=== PATIENT | male | born 1955 | race Caucasian/White ===

== ENCOUNTER 2017-12-11 08:03 | Inpatient (IN) ==
[2017-12-11] MEDS ORDERED: SALINE FLUSH 10ml SYRINGE IVF PRN (08:05)
--- NOTE | 2017-12-11 08:06 | Emergency Department Report ---
General Adult HPI - General Stated complaint: cp Time Seen by Provider: 12/11/17 08:04 Source: patient Mode of arrival: ambulatory Limitations: no limitations - History of Present Illness HPI narrative: 62-year-old male presents to the emergency department with a chief complaint of chest tightness. Patient noted onset of symptoms approximately 1 hour prior to arrival to the ED while on his way to work. The tightness was moderate in nature. No radiation. Symptoms resolved without intervention after "a few minutes." He has no other complaints or associated symptoms. He was on his way to work when the symptoms began. Patient did have a history of similar symptoms approximately 1 month ago and never followed up as instructed after his initial visit to the emergency department. - Related Data Home Medications Medication Instructions Recorded Confirmed Niacin 500 mg PO BID #0 08/29/12 12/11/17 Calcium 600 w/Vitamin D3 (calcium 1 cap PO DAILY 03/30/17 12/11/17 carbonate-vitamin D3 600 mg (1,500 mg)-400 unit) capsule multivitamin-ferrous 1 tab PO QAM 03/30/17 12/11/17 fumarate-folic acid 18 mg-400 mcg tablet Aspirin [ASA] 325 mg PO DAILY 12/11/17 12/11/17 Previous Rx's Medication Instructions Recorded Tenormin (atenolol) 100 mg tablet 100 mg PO DAILY #90 tab 03/21/17 chlorthalidone 25 mg tablet 25 mg PO DAILY #90 tab 03/21/17 Catapres (clonidine HCl) 0.1 mg 0.1 mg PO BID #180 tab 11/07/17 tablet Glucophage (metformin) 1,000 mg 1,000 mg PO BID #180 tab 11/27/17 tablet dapagliflozin 10 mg tablet 10 mg PO QAM #90 tab 11/27/17 Cozaar (losartan) 50 mg tablet 50 mg PO BID #60 tab 12/11/17 Allergies Allergy/AdvReac Type Severity Reaction Status Date / Time Penicillins Allergy Verified 12/11/17 12:35 Review of Systems Constitutional: Denies: fever, chills Eyes: Denies: eye pain, vision change ENT: Denies: ear pain, throat pain Cardiovascular: Reports: chest pain. Denies: palpitations Respiratory: Denies: cough, dyspnea, wheezes Gastrointestinal: Denies: abdominal pain, nausea, vomiting, diarrhea Genitourinary: Denies: urgency, dysuria Musculoskeletal: Denies: back pain, arthralgia Integumentary: Denies: erythema, rash Neurological: Denies: headache, numbness Psychiatric: Denies: anxiety, depression Endocrine: Denies: fatigue, heat or cold intolerance Hematological/Lymphatic: Denies: easy bruising, lymphadenopathy Allergic/Immunologic: Denies: facial swelling, urticaria PFSH Patient Stated Medical History Hypertension Yes Diabetes Mellitus Type 2 Yes Cellulitis Yes: foot Clinic Medical History (Last Reviewed 03/30/17 @ 11:39 by ALVINO Brito) Obesity (Chronic Medical) Diabetes (Chronic Medical) Hgb A1C 6.6 Hypercholesteremia (Chronic Medical) HTN (hypertension) (Chronic Medical) Surgical History: Colonoscopy Family History: Family History (Last Reviewed 03/30/17 @ 11:39 by ALVINO Brito) Mother Diabetes Non-Hodgkin lymphoma Father Prostate cancer HTN (hypertension) - Social History Smoking status: Never smoker Substance use type: does not use Alcohol intake frequency: does not drink Physical Exam - Limitations Limitations: no limitations - General General appearance: alert, in no apparent distress - Normal Exams: Head:: Normocephalic without trauma Eyes:: Pupils are PERRLA w/ EOMI, No scleral icterus, irritation, or foreign bodies noted ENMT:: No facial trauma, nasal exudates, pharyngeal erythema, or exudates are noted Dental: No fractured, loose, or missing teeth noted Neck:: Full range of motion, without adenopathy, JVD, bruits or thyromegaly Chest/Respirations:: Clear all el, with good airflow, and symmetry bilaterally Cardiovascular:: Regular rate and rhythm, without murmur or gallop, Pulses 2+ all extremities, capillary refill, <2 seconds all extremities Abdomen:: Bowel sounds positive (Mild RUQ Tenderness to palpation without rebound or guarding. NO CVAT. ), non-distended, no hepatosplenomegaly, masses or bruits noted Lymphatic:: No lymphadenopathy, or lymphedema noted Musculoskeletal:: No tenderness, or deformity noted, good range of motion, all extremities Integumentary:: No rashes, hives, or bruising noted, hair and nails, without abnormality Neurological:: Patient is alert, and oriented, cranial nerves, motor/sensory/ cerebellar, exams w/o gross deficits, to observation Psychiatric:: Patient exhibits, appropriate attention, emotion and affect Course Vital Signs Temperature 97.9 F 12/11/17 08:05 Pulse Rate 72 12/11/17 08:05 Respiratory Rate 24 12/11/17 08:05 Blood Pressure 145/73 H 12/11/17 08:05 Pulse Oximetry 100 12/11/17 08:05 Temperature 99.2 F 12/11/17 12:42 Pulse Rate 73 12/11/17 12:42 Respiratory Rate 16 12/11/17 12:42 Blood Pressure 154/94 H 12/11/17 12:42 Pulse Oximetry 95 12/11/17 12:42 Medical Decision Making - MDM Narrative Medical decision making narrative: Labs / imaging were discussed in detail with the patient and questions are answered. Patient is found to have acute cholecystitis on ultrasound of his gallbladder. Patient is started on Cipro/Flagyl intravenously in the emergency department. He is discussed with the Dr. García of general surgery and was admitted to his service for further evaluation and treatment. He is made NPO in the ED. He declined offered analgesic pain medication in the ED. No further orders from accepting physician who is in agreement with the current plan of management. - Differential Diagnosis ACS, Chest wall pain, acute cholecystitis, pancreatitis - Lab Data Result diagrams: 12/11/17 08:18 12/11/17 08:18 Lab Results 12/11/17 12/11/17 12/11/17 Range/Units 08:18 08:18 08:18 WBC 17.6 H (4.5-11.0) T/MM3 RBC 4.07 L (4.50-5.90) M/MM3 Hgb 11.6 L (13.5-17.5) GM/DL Hct 36.8 L (41-53) % MCV 90.4 (80-100) UM3 MCH 28.5 (26-34) UUG MCHC 31.5 (31-37) GM/DL RDW Std Deviation 46.5 (36.9-50.2) FL Plt Count 473 H D (130-400) T/MM3 MPV 8.7 L (9.4-12.4) UM3 Immature Gran % (Auto) Not performed Neut % (Auto) Not performed Lymph % (Auto) Not performed [place] % (Auto) Not performed Eos % (Auto) Not performed Baso % (Auto) Not performed Neut # (Auto) Not performed Lymph # (Auto) Not performed [place] # (Auto) Not performed Eos # (Auto) Not performed Baso # (Auto) Not performed Abs Immat Gran (auto) Not performed Neutrophils % (Manual) 82.0 H (33-66) % Band Neutrophils % 1.0 (0-6) % Lymphocytes % (Manual) 13.0 L (23-45) % Monocytes % (Manual) 1.0 (0-9.0) % Eosinophils % (Manual) 2.0 (0-4) % Basophils % (Manual) 1.0 (0-2) % Neutrophils # (Manual) 14.4 H (1.8-7.7) T/MM3 Band Neutrophils # 0.2 T/MM3 Lymphocytes # (Manual) 2.3 (1-4.8) T/MM3 Monocytes # (Manual) 0.2 (0-0.8) T/MM3 Eosinophils # (Manual) 0.4 (0-0.5) T/MM3 Basophils # (Manual) 0.2 (0-0.2) T/MM3 RBC Morph Comment Normal Turbidity < 20 (0-20) Sodium 143 (134-144) MEQ/L Potassium 3.7 (3.6-5) MEQ/L Chloride 103 (98-107) MEQ/L Carbon Dioxide 24 (22-30) MEQ/L Anion Gap 16 H (5-15) MEQ/L BUN 13.0 (9-20) MG/DL Creatinine 0.6 L (0.8-1.5) mg/dL GFR Calculation 137 BUN/Creatinine Ratio 22 (6-26) RATIO Glucose 218 H (75-110) MG/DL Calculated Osmolality 282 H (261-280) MOSM/KG Calcium 9.6 (8.4-10.2) MG/DL Total Bilirubin 0.90 (0.20-1.30) MG/DL Icterus Index < 2 (0-7) AST 49 (17-59) U/L ALT 48 (21-72) U/L Alkaline Phosphatase 136 H (38-126) U/L Troponin I < 0.012 (0-0.12) ng/ml Total Protein 7.5 (6.3-8.2) G/DL Albumin 3.9 (3.5-5.0) g/dL Globulin 3.6 (2.4-3.6) G/DL Albumin/Globulin Ratio 1.1 (1.1-2.2) RATIO Lipase 121 (23-300) U/L Specimen Hemolysis < 15 (0-25) - Radiology Data CXR - No acute processes. RUQ US - Impression: Cholelithiasis with gallbladder wall thickening potentially representing acute cholecystitis in the appropriate clinical setting. No biliary ductal dilatation. - EKG Data EKG #1 EKG results narrative: Sinus rhythm. 74 bpm. No STEMI. Disposition Clinical Impression: acute cholecystitis Disposition: 02 To [facility] Condition: Stable Time of Disposition: 10:55 (Admit. Dr. García. ) - Seen By: physician
--- NOTE | 2017-12-11 08:41 | XRay Report ---
Indication: Pain Procedure: XR chest 1V: Encounter: Initial Comparison: 11/19/2017 Technique: A single portable AP chest radiograph was obtained. Findings: Lungs and airways: Low lung volumes with associated mild basilar subsegmental atelectasis. No other focal/confluent airspace consolidation. Bronchovascular crowding from low lung volumes. Pleura: No pleural effusion or pneumothorax. Heart and mediastinum: Aortic atherosclerosis. Cardiomegaly, accentuated by low lung volumes and AP technique. Osseous structures and soft tissues: No acute osseous abnormality is seen. Degenerative arthrosis of the AC joints. Impression: No acute cardiopulmonary process. .
--- NOTE | 2017-12-11 11:18 | Ultrasound Report ---
Indication: Pain PROCEDURE: US gall bladder: Encounter: Initial Comparison: None Technique: Grayscale and color Doppler sonographic imaging of the right upper quadrant of the abdomen was performed. Findings: Hepatic parenchyma is homogeneous without evidence for focal mass. The liver is enlarged measuring 20.1 cm. The gallbladder contains a large shadowing stone at the neck with additional echogenic sludge noted. The gallbladder wall appeared thickened measuring up to 8 mm. Presence or absence of sonographic Do sign was not reported. Both the intra and extrahepatic biliary system are of normal caliber with the common duct measuring 5.5 mm in dimension. Visualized portions of the head and body of the pancreas are unremarkable. The right kidney is present without collecting system dilatation. The right kidney measures 12.9 cm in length. Impression: Cholelithiasis with gallbladder wall thickening potentially representing acute cholecystitis in the appropriate clinical setting. No biliary ductal dilatation. .
[2017-12-11] MEDS ORDERED: MetroNIDAZOLE PB 500 MG/100 ML BAG IV SCH (11:30)
[2017-12-11] MEDS ORDERED: CIPROFLOXACIN IVPB 400 MG/200 ML BAG IV SCH (11:30)
[2017-12-11 12:38] VITALS: BMI 31.3
[2017-12-11] MEDS: LR 1,000 ML IV SCH ×4 (12:52→18:40)
[2017-12-11] MEDS ORDERED: BUPIVACAINE 0.5%/EPI 1:200,000 INJ 30ml SDV ONE (14:13)
[2017-12-11] MEDS ORDERED: INDOCYANINE GREEN 25mg INJECTION ONE (14:13)
[2017-12-11] MEDS ORDERED: SALINE FLUSH 10ml SYRINGE ONE (14:26)
--- NOTE | 2017-12-11 14:30 | Anesthesia Preoperative Report ---
Anesthesia Preoperative Record - Date and Time Date: 12/11/17 Preoperative Diagnosis: Acute Cholecystitis Proposed Procedure: Robotic Lap Zoie NPO Since Date: 12/11/17 NPO Since Time: 00:00 Allergies/Adverse Reactions: Allergies Allergy/AdvReac Type Severity Reaction Status Date / Time Penicillins Allergy Verified 12/11/17 12:35 - Vital Signs Vital Signs: Temperature 99.2 F 12/11/17 12:42 Pulse Rate 73 12/11/17 12:42 Respiratory Rate 16 12/11/17 12:42 Blood Pressure 154/94 H 12/11/17 12:42 Pulse Oximetry 95 12/11/17 12:42 Height and Weight: Height 1.8 m Weight 101.8 kg Body Mass Index 31.3 - Medications Inpatient Medications: Current Medications Ciprofloxacin Lactate (Cipro 400 Mg Premix) 400 mg in 200 mls @ 200 mls/hr IV O ADNREY Last Infusion: 12/11/17 12:49 Dose: Infused Metronidazole/Sodium Chloride (Flagyl Iv Premix) 500 mg in 100 mls @ 100 mls/ hr IV O ANDREY Last Infusion: 12/11/17 14:14 Dose: Infused Sodium Chloride (Normal Saline) 500 mls @ 0 mls/hr IV .Q0M ANDREY PRN Reason: Per Protocol Lactated Ringer's (Lactated Ringers) 1,000 mls @ 125 mls/hr IV .Q8H ANDREY Last Infusion: 12/11/17 14:14 Dose: 125 mls/hr Sodium Chloride (Iv Flush) 10 - 80 ml IVF PRN PRN PRN Reason: [place] Home Medications: Home Medications Medication Instructions Recorded Confirmed Type Niacin 500 mg PO BID #0 08/29/12 12/11/17 History Tenormin (atenolol) 100 mg tablet 100 mg PO DAILY #90 tab 03/21/17 12/11/17 Rx chlorthalidone 25 mg tablet 25 mg PO DAILY #90 tab 03/21/17 12/11/17 Rx Calcium 600 w/Vitamin D3 (calcium 1 cap PO DAILY 03/30/17 12/11/17 History carbonate-vitamin D3 600 mg (1,500 mg)-400 unit) capsule multivitamin-ferrous 1 tab PO QAM 03/30/17 12/11/17 History fumarate-folic acid 18 mg-400 mcg tablet Catapres (clonidine HCl) 0.1 mg 0.1 mg PO BID #180 tab 11/07/17 12/11/17 Rx tablet Glucophage (metformin) 1,000 mg 1,000 mg PO BID #180 tab 11/27/17 12/11/17 Rx tablet dapagliflozin 10 mg tablet 10 mg PO QAM #90 tab 11/27/17 12/11/17 Rx Aspirin [ASA] 325 mg PO DAILY 12/11/17 12/11/17 History Cozaar (losartan) 50 mg tablet 50 mg PO BID #60 tab 12/11/17 Rx Is Patient on Beta Adelina?: Yes Beta Adelina Last Dose Date/Time: Atenolol 12/11/2017 @ 0600 - Medical History Cardiovascular: Reports: Hypertension Renal/Endocrine: Reports: Diabetes Mellitus Type 2 - Surgical History GI Surgery/Treatments: Reports: Colonoscopy Anesthesia Reactions: None Hx Family Anesthesia Reaction: No History of Motion Sickness: No - Social History Smoking Status: Never smoker Hx Chewing Tobacco Use: No Second Hand Exposure: No Substance Use Type: does not use Alcohol Intake Frequency: does not drink - Pertinent Findings EKG: Sinus Rhythm - Physical Exam Respiratory Exam: Present: lungs clear - Airway Assessment Mallampati Score: II TMD: 3 Fingerbreadths Neck Extension: fair Overall Assessment: no airway concerns - ASA ASA Score: 2 - Plan Anesthesia: General Inhalation Gases - Discussion Discussion: Discussed risks/options/alternatives of anesthesia and questions answered. Patient consents. Nursing pain assessment noted. Present for Discussion: family member Attestation Statement: Prior to the delivery of any anesthetic medication, I examined the patient, developed the plan, obtained the patient's consent and discussed the risk and benefits of the procedure with the patient/guardian. - Additional Information Seen by Anesthesia: Yes
[2017-12-11] MEDS ORDERED: INDOCYANINE GREEN 25mg INJECTION IVP ONE (14:40)
[2017-12-11] MEDS ORDERED: FentaNYL 250 MCG/5 ML INJECTION ONE (14:42)
[2017-12-11] MEDS ORDERED: ROCURONIUM 50 MG/5 ML INJECTION IVP ONE (14:42)
[2017-12-11] MEDS ORDERED: PROPOFOL 20 ML ONE (14:42)
[2017-12-11] MEDS ORDERED: SUCCINYLCHOLINE 20mg/mL 10mL INJECTION ONE (14:42)
[2017-12-11] MEDS ORDERED: LEVOFLOXACIN PB 500 MG/100 ML BAG IV SCH (14:45)
--- NOTE | 2017-12-11 14:45 | General Surg History&Physical ---
[facility] Patient Stated Medical History Hypertension Yes Sleep Apnea No Diabetes Mellitus Type 2 Yes Cellulitis Yes: foot Clinic Medical History (Last Reviewed 03/30/17 @ 11:39 by ALVINO Brito) Obesity (Chronic Medical) Diabetes (Chronic Medical) Hgb A1C 6.6 Hypercholesteremia (Chronic Medical) HTN (hypertension) (Chronic Medical) Surgical History: Colonoscopy. Denies any abdominal surgery Family History: Family History (Last Reviewed 03/30/17 @ 11:39 by ALVINO Brito) Mother Diabetes Non-Hodgkin lymphoma Father Prostate cancer HTN (hypertension) - Social History Smoking status: Never smoker second hand exposure: No Substance use type: does not use Alcohol intake frequency: does not drink Household members: spouse Current occupational status: employed ([employer]) Does patient use chewing tobacco?: No Current residence: Apartment/Private Home Medications Home Medications Medication Instructions Recorded Confirmed Type RX: Niacin 500 mg PO BID #0 08/29/12 12/11/17 History Tenormin (atenolol) 100 mg tablet 100 mg PO DAILY #90 tab 03/21/17 12/11/17 Rx chlorthalidone 25 mg tablet 25 mg PO DAILY #90 tab 03/21/17 12/11/17 Rx Calcium 600 w/Vitamin D3 (calcium 1 cap PO DAILY 03/30/17 12/11/17 History carbonate-vitamin D3 600 mg (1,500 mg)-400 unit) capsule multivitamin-ferrous 1 tab PO QAM 03/30/17 12/11/17 History fumarate-folic acid 18 mg-400 mcg tablet Catapres (clonidine HCl) 0.1 mg 0.1 mg PO BID #180 tab 11/07/17 12/11/17 Rx tablet Glucophage (metformin) 1,000 mg 1,000 mg PO BID #180 tab 11/27/17 12/11/17 Rx tablet dapagliflozin 10 mg tablet 10 mg PO QAM #90 tab 11/27/17 12/11/17 Rx Aspirin [ASA] 325 mg PO DAILY 12/11/17 12/11/17 History Cozaar (losartan) 50 mg tablet 50 mg PO BID #60 tab 12/11/17 Rx Allergies Allergy/AdvReac Type Severity Reaction Status Date / Time Penicillins Allergy Verified 12/11/17 12:35 Review of Systems 10-point ROS: negative except for HPI and the following: - Respiratory Respiratory: Present: sleep apnea - Musculoskeletal Additional comments: Denies joint/back pain, states he "gets around pretty good." - Endocrine Endocrine: Present: diabetes - Vital Signs Last Vital Signs Temp 98.5 F 12/11/17 14:29 Pulse 70 12/11/17 14:31 Resp 20 12/11/17 14:29 BP 129/69 12/11/17 14:29 Pulse Ox 95 12/11/17 14:29 - Laboratory Result Diagrams: 12/12/17 04:21 12/12/17 04:21 Hospital Course Summary Disclaimer: The visit summary below is not to be considered part of the above Progress Note.
[2017-12-11] MEDS ORDERED: HYDRALAZINE 20 MG/ML INJECTION ONE (15:30)
[2017-12-11] MEDS ORDERED: SALINE FLUSH 10ml SYRINGE IV ONE (15:31)
[2017-12-11] MEDS ORDERED: BUPIVACAINE 0.5%/EPI 1:200,000 INJ 30ml SDV INFIL ONE (15:40)
--- NOTE | 2017-12-11 17:31 | Operative Note ---
DATE OF SERVICE 12/11/2017 FINDINGS Mr. Merchant is a 62-year-old gentleman whom I was asked to see through the emergency room today as a result of his history and physical findings of right upper quadrant abdominal pain as well as an abnormal gallbladder ultrasound obtained earlier today. Upon questioning the patient he states that about four weeks ago he had an episode similar to what he has experienced today. The patient states about four weeks ago he had a severe pain which was across his upper abdomen. Patient states that the pain lasted for several hours in duration and was fairly significant. Patient states that at first he thought perhaps he had the flu and "waited a period of time" and began to feel better. The patient states that today he had a similar episode of severe pain across his upper abdomen/lower chest. Patient states he did make it to work and that his boss told him that he could be having a "heart attack" and brought him in to [facility] ER for further evaluation. Patient upon questioning stated that he did notice that when the "doctor pushed on him" that he had severe pain within his right upper quadrant of his abdomen. The patient did have some nausea in association with the pain. Patient states that he was evaluated in the emergency room and was found to have "no problems with his heart." Patient states that his pain has now improved but he continues to notice tenderness within his right upper quadrant. He denied really any radiating features of this severe upper abdominal pain. PAST MEDICAL HISTORY, PAST SURGICAL HISTORY, MEDICATIONS, ALLERGIES, SOCIAL HISTORY, FAMILY HISTORY, REVIEW OF SYSTEMS Performed by my nurse practitioner, Eyad Qureshi APRN. PHYSICAL EXAMINATION GENERAL: Mr. Merchant is a 62-year-old gentleman whom I saw earlier this morning. At that time he did not appear to be in acute distress and had been transferred out to the surgical floor. VITAL SIGNS: Temperature 98.5, pulse 70, respirations 20, blood pressure 129/69 , SAO2 95% on room air. HEENT: Normocephalic. Pupils are equally round and react to light and accommodation. NECK: Supple without lymphadenopathy. CHEST: Clear to auscultation bilaterally. HEART: Regular rate and rhythm. Normal S1 and S2 without gallops, murmurs or clicks. ABDOMEN: Palpation of the abdomen did indeed reveal localized tenderness to his right upper quadrant. The patient was found to have a component of voluntary and involuntary guarding with palpation within the right upper quadrant. He did have a positive Do's sign. Remaining abdomen is soft and nontender. I did not appreciate any evidence for hepatosplenomegaly or abnormal masses. EXTREMITIES: Without clubbing, cyanosis, or edema. NEURO: Cranial nerves II-XII grossly intact. Patient is without focal motor or sensory deficits. LABORATORY/RADIOGRAPHIC EVALUATION The patient had a CBC and his white count was elevated at 17.6. CMP was obtained and found to be essentially within normal limits. The patient' s glucose was elevated at 218. He does have known diabetes mellitus. His alkaline phosphatase was slightly elevated at 136. AST, ALT, total bilirubin, however, were all within normal limits. Gallbladder ultrasound was obtained that did reveal a large stone within the neck of the gallbladder. There was a component of gallbladder wall thickening. Findings were suggestive of acute cholecystitis. ASSESSMENT 62-year-old gentleman with acute cholecystitis/symptomatic cholelithiasis. PLAN I informed the patient that it was my clinical intubation that this severe pain he was experiencing was indeed a result of his gallbladder/"gallstones"/ cholelithiasis. I did discuss the case earlier this morning with the emergency room physician. The ER physician was kind enough to place the patient in the hospital on an outpatient basis. ER doc also per our discussion had given the patient Cipro and Flagyl as a result of his finding of cholecystitis and leukocytosis. It was my recommendation to the patient that we proceed with surgical intervention/robotic-assisted laparoscopic cholecystectomy as a result of the above indications. I did discuss in detail with the patient and his earlier today what a robotic-assisted laparoscopic cholecystectomy would entail and its associated risk which included but was not inclusive of bleeding , infection, potential to adjacent structures especially the common bile duct, as well as potential for conversion to an open procedure. The patient understood and wished to proceed as stated above. ESTEBAN
[2017-12-11] MEDS ORDERED: IOHEXOL 300mg/ml 50ml INJECTION ONE (18:20)
[2017-12-11] MEDS ORDERED: IOHEXOL 300mg/ml 50ml INJECTION OPSITE ONE (18:26)
[2017-12-11] MEDS ORDERED: SUGAMMADEX 200mg/2ml INJECTION IVP ONE (19:43)
[2017-12-11] MEDS ORDERED: MORPHINE SULFATE 10 MG/ML VIAL ONE (19:45)
[2017-12-11] MEDS ORDERED: ONDANSETRON 4 MG/2 ML INJECTION IVP PRN ×2 (19:57→21:00)
[2017-12-11] MEDS: HYDROMORPHONE 2 MG/ML INJECTION IVP PRN ×2 (20:02→20:20)
[2017-12-11] MEDS ORDERED: KETOROLAC 30 MG/ML INJECTION IVP ONE (20:13)
--- NOTE | 2017-12-11 20:17 | General Surgery Procedure Note ---
Date of Procedure: 12/11/17 Surgeon: Raquel Lead Engineer: Eyad Qureshi APRN Postoperative Diagnosis: Acute Gangrenous cholecystitis cholelithiasis, without obstruction. Procedure: Robotic laparoscopic cholecystectomy with [employer] and Intraoperative Cholangiogram. Estimated Blood Loss: See Anesthesia Record.
[2017-12-11] MEDS ORDERED: INSULIN REGULAR, HUMAN 100 UNIT/ML INJECTION IVP ONE (20:28)
[2017-12-11] MEDS ORDERED: METOCLOPRAMIDE 10mg/2ml INJECTION IVP PRN (21:00)
[2017-12-11] MEDS ORDERED: MORPHINE SULFATE 4mg INJECTION IVP PRN (21:00)
[2017-12-11] MEDS ORDERED: METFORMIN 1,000 MG TABLET PO SCH (21:00)
[2017-12-11] MEDS: NS 1,000 ML IV SCH (21:30)
[2017-12-11] MEDS: MetroNIDAZOLE PB 500 MG/100 ML BAG IV SCH (21:48)
--- NOTE | 2017-12-11 22:11 | Anesthesia Postoperative Note ---
- Date and Time Date: 12/11/17 Time: 22:10 - Status Patient Participated in Evaluation: Patient Participated in Person Vital Signs: Temperature 98.3 F 12/11/17 21:00 Pulse Rate 81 12/11/17 21:00 Respiratory Rate 16 12/11/17 21:00 Blood Pressure 145/76 H 12/11/17 21:00 Pulse Oximetry 93 12/11/17 21:00 Respiratory Function: Airway Patent, Regular Respirations Cardiovascular Function: Regular Pulse EKG: Sinus Rhythm Mental Status: Alert and Oriented Pain Intensity: 5 Hydration: Taking PO Fluids, IV Infusing Complications During Recover: None Apparent - Follow-Up Instructions Instructions: Per Surgeon
[2017-12-12] MEDS: HYDROCODONE/APAP 5mg/325mg TABLET PO PRN ×4 (04:13→23:31)
[2017-12-12] MEDS: MetroNIDAZOLE PB 500 MG/100 ML BAG IV SCH ×3 (04:45→20:49)
[2017-12-12] MEDS: NS 1,000 ML IV SCH ×4 (04:45→23:33)
[2017-12-12] MEDS: METFORMIN 1,000 MG TABLET PO SCH ×2 (08:06→17:50)
[2017-12-12] MEDS: IBUPROFEN 800 MG TABLET PO PRN ×2 (08:39→17:49)
--- NOTE | 2017-12-12 09:25 | Remote Fluorsocopy Report ---
Indication: cholangiogram PROCEDURE: RF cholangiogram operative: Comparison: None Findings: 4 fluoroscopic spot images are submitted from an intraoperative cholangiogram. Images demonstrate injection of contrast into the cystic duct with filling of the common duct and intrahepatic biliary tree. No discrete filling defects are identified. Contrast flows into the duodenum. Impression: Intraoperative fluoroscopy as above. Please refer to the dictated operative note for further details. Fluoroscopy time is 45 seconds. Fluoroscopy dose is 1470 mRad. .
--- NOTE | 2017-12-12 11:16 | Operative Note ---
DATE OF PROCEDURE 12/11/2017 SURGEON Pedro García MD TUTOR COORDINATOR Eyad Qureshi APRN PREOPERATIVE DIAGNOSIS Acute cholecystitis. POSTOPERATIVE DIAGNOSIS Acute/gangrenous cholecystitis. PROCEDURE PERFORMED Robotic-assisted laparoscopic cholecystectomy with use of intraoperative Firefly biliary imaging, intraoperative cholangiogram, and biopsy of liver nodules. ANESTHESIA General endotracheal. EBL AND FLUIDS Please see chart. BRIEF HISTORY/INDICATIONS Mr. Merchant is a 62-year-old gentleman who I was asked to see today as a result of his finding of severe right upper quadrant abdominal pain, leukocytosis, and abnormal gallbladder sonogram revealing evidence for acute cholecystitis. Upon physical examination the patient indeed was found to have localized tenderness to his right upper quadrant. He was found to have positive Do sign. Sonogram did reveal a large stone within the neck of the gallbladder with associated gallbladder wall thickening. As a result of the above indications, it was recommended to the patient that he undergo surgical intervention/ cholecystectomy. For completeness please refer to notes included in the patient 's chart. FINDINGS Upon laparoscopy Jono's capsule contained several small whitish nodules upon its surface. These whitish nodules were about 5 mm in diameter and located upon the surface of the left lobe of the liver as well as the right lobe of the liver. A few of these nodules were biopsied and submitted for pathologic evaluation. Small bowel, omentum and colon which was visualized were within normal limits. Gallbladder was markedly abnormal. There was a considerable amount of adhered omentum to the gallbladder. Once the gallbladder was visualized the gallbladder was found to contain marked inflammatory changes. With careful meticulous dissection, however, a standard robotic-assisted laparoscopic cholecystectomy was able be completed without incident. DESCRIPTION OF PROCEDURE After informed consent was obtained the patient was brought to the operative suite and placed on the table in a supine fashion. The abdomen was prepped and draped in sterile fashion. Formal time-out was then completed. 0.25% Marcaine with epinephrine was ejected just beneath the level of the umbilicus. A 2 cm curved incision was then made through the area of analgesia. Dissection was carried down the deep subcuticular tissues to underlying fascia. The fascia was then grasped with two Suzie clamps, retracted anteriorly. A 1 cm incision was then made between the two Suzie clamps. A hemostat was then introduced and the fascial incision gently spread. A U stitch was then placed with 0 Vicryl. A 12 mm Vicenta port was then placed through the fascial opening into the peritoneal cavity. Next, two additional 8-mm da Zamzam ports were then placed in the left upper quadrant and right lower quadrant. An additional 5 mm assist port was then placed along the right lateral abdominal wall. Each port site was preinjected with 0.25% Marcaine with epinephrine and placed under direct visualization. Abdominal cavity was explored via the laparoscope. Findings were as noted above. Next, the robot was then docked overlying the patient's right shoulder. Fenestrated bipolar grasper was placed in robotic arm 1. A robotic suction tip catheter was placed in robotic arm 1. The omentum was then began to be dissected away from the lower edge of the liver as well as from the fundus of the gallbladder. Electrocautery was used at times under direct visualization. At no point in time was electrocautery performed adjacent to hollow viscus such as transverse colon or duodenum. Once the fundus was able to be exposed, I had my bilingual medical assistant then grasp the fundus and retract it in a cephalad fashion. Dissection was then continued along the lateral and medial aspect of the gallbladder and the omentum was continued to be carefully and meticulously dissected away from the gallbladder and liver edge. The wall of the gallbladder itself was found to be gangrenous along the lateral aspect and a small rent was created within the gallbladder during the process of dissection. This would be considered to be inherent to the procedure itself. Dissection was then continued down towards the infundibular portion of the gallbladder. Several hours were spent performing this careful meticulous dissection. The majority of the dissection was carried out bluntly utilizing the suction tip catheter. Eventually, the medial and lateral aspects of the infundibulum were able be freed. Posterior aspect of the infundibulum was then able to be freed from the liver bed fossa. Firefly biliary imaging was performed during the process of dissection. One could eventually see the cystic artery and cystic duct coming forth from the infundibulum of the gallbladder. Again, several hours were spent performing careful meticulous dissection to get to this point. Posterior aspect of the infundibulum was freed from the liver bed fossa. At this point in time a critical view of safety been obtained and the only remaining structures coming forth from the infundibulum of the gallbladder were that of the cystic duct and cystic artery. A single Hem-o-lay clip was then placed upon the cystic artery, upon the infundibulum of the gallbladder. An additional Hem-o-lay clip was placed just proximally upon the cystic artery. Cystic artery was then divided between the two Hem-o-lay clips. This resulted in further mobilization of the infundibulum of the gallbladder. I elected to perform an intraoperative cholangiogram given the difficulty of the dissection although it appeared that the anatomy was clearly identified as discussed above. A single Hem-o-Lay clip was then placed upon the cystic duct adjacent to the infundibulum of the gallbladder. A ductotomy was then performed just proximally upon the cystic duct. Robot was then undocked and a cholangiocatheter was then placed through the ductotomy within the cystic duct and a cholangiogram was obtained under fluoroscopy. Under fluoroscopy one could see a short length of the cystic duct before entering in the common bile duct. Additionally one could see good flow into the duodenum with an appropriate distal taper of the distal common bile duct. Proximally one could see the intrahepatic radicles, left right hepatic duct and common hepatic. After obtaining a normal cholangiogram, cholangiocatheter was removed. Robot was then re-docked overlying the patient's right shoulder. The gallbladder itself did not fluoresce well utilizing Firefly biliary imaging. I do believe there was a component of obstruction of the gallbladder resulting in non-fluorescence of the gallbladder. The cystic duct also did not fluoresce well utilizing biliary imaging. The cystic duct, however, was clearly identified, as stated above. Once cholangiocatheter was removed from the cystic duct, a single Hem-o-Lay clip was then placed upon the cystic duct just proximal to the prior ductotomy. Cystic duct was then divided between the two Hem-o-lay clips. Gallbladder was then dissected off the liver bed fossa. The tissue planes were difficult as a result of the marked inflammatory changes. Upon the midportion of the gallbladder a portion of the gallbladder wall was left adherent to the liver bed fossa. The mucosa that was left at this location was obliterated utilizing electrocautery. The gallbladder was completely dissected off of the liver bed fossa. Irrigation was performed. There was a small amount of bleeding coming forth from the edge of the gallbladder wall that was still left adhered to the liver bed fossa. A few small metal clips were placed upon the site of bleeding resulting in complete hemostasis. Additional irrigation was performed and all irrigant was suctioned until clear. Gallbladder fossa at this time was completely hemostatic in nature. The mucosa that was present was completely obliterated at this point in time upon the small portion of the gallbladder wall that remained adhered to the liver bed fossa. The previously placed Hem-o-lay clips were visualized and remained intact. Robot was then undocked. The gallbladder as well as a large gallstone was placed within the retrieval bag. The incision near the umbilicus had to be extended for the gallstone itself was perhaps on the order of 3-4 cm in diameter. Once the incision was extended, the fascial opening was also extended to allow delivery of the thickened gallbladder and gallstone. This did result in a small amount of bleeding coming forth from the rectus muscle that was divided to allow delivery of the gallbladder from the peritoneal cavity. A few [id number] sutures of 0 Vicryl were placed at this location resulting in complete hemostasis. Port was then replaced through the remaining fascial opening. Irrigation was then again performed and all irrigant was suctioned until clear. As stated above, there were perhaps 15-20 small whitish nodules, each about 4-5 mm in diameter, upon the surface of Jono's capsule involving both the left and right hepatic lobes. A few of these whitish nodules were biopsied utilizing a laparoscopic "punch biopsy" grasper. These whitish nodules were placed within formalin for pathologic evaluation in a separate container. No significant bleeding occurred at the biopsy sites. A nodule was biopsied from the midportion of the left lobe of the liver as well as from the edge of the right lobe of the liver. A 19-Lithuanian drain was then placed through the port within the left upper quadrant and allowed to exit through the port within the right lower quadrant of the abdomen. 19-Lithuanian drain was then placed in a subhepatic location. The ports were removed under direct visualization. Pneumoperitoneum was released. Previously placed U stitch at the infraumbilical port was then tied resulting in closure of the fascial opening. All skin incisions were then closed with beatrice. A drain was secured to the right lower abdominal wall with 2-0 Prolene. The patient was awakened from his anesthetic and sent back to recovery once deemed in stable condition. Additionally, it should be noted that Eyad Qureshi APRN, was present throughout the entire case and played a pivotal role in providing assistance and exposure during the course of the procedure. ESTEBAN
--- NOTE | 2017-12-12 12:41 | General Surgery Progress Note ---
Subjective Patient reports: feels better, tolerating a regular diet Narrative: States he's feeling much better than he did when he presented to the ED yesterday. He does recall having quite a bit of pain in the recovery room but states the discomfort has subsided substantially. The majority of the discomfort is in the umbilical region. Denies nausea, he ate of regular breakfast this morning without difficulty. He is quite fatigued. Denies chest pain shortness of breath. - Vital Signs Last Vital Signs Temp 98.7 F 12/12/17 12:00 Pulse 88 12/12/17 12:00 Resp 16 12/12/17 12:00 BP 133/71 12/12/17 12:00 Pulse Ox 90 12/12/17 12:00 - Laboratory Result Diagrams: 12/12/17 04:21 12/12/17 04:21 - Abnormal Exam Abdominal: obese - Normal Exam General: awake, alert Respiratory: clear bilaterally, no labored breathing Abdominal: soft, appropriately tender (at trocar sites), non-tender (total lateral palpation), incision(s) (dressings intact and dry, beatrice present and intact.) Psychiatric: normal affect Assessment and Plan (1) Cholelithiasis and acute cholecystitis without obstruction Current Visit: Yes Status: Acute (2) Status post laparoscopic cholecystectomy Current Visit: Yes Status: Acute (3) Leukocytosis Current Visit: Yes Status: Acute (4) Diabetes Current Visit: No Status: Chronic Qualifiers: Diabetes mellitus type: type 2 Problem details: Hgb A1C 6.6 (5) HTN (hypertension) Current Visit: No Status: Chronic Qualifiers: Hypertension type: essential hypertension Qualified Code(s): I10 - Essential (primary) hypertension (6) Obesity Current Visit: No Status: Chronic Qualifiers: Body mass index: BMI 32.0-32.9 Plan: POD #1 Robotic-assisted cholecystectomy last night was very difficult and lengthy. He is feeling much better this morning. Leukocytosis of 23.2 compared to 17.6 yesterday, no bandemia at this point. He did not get the Ciprofloxacin last night as ordered but did get at this morning. Hemoglobin stable although slightly low at 10.2, it was 11.6 prior to surgery. Chemistry is basically unremarkable except elevated blood glucose. He is diabetic and his diabetic medications will be added back into his routine. Given the extent of gangrenous cholecystitis anticipate a couple days of IV antibiotics and then home on by mouth antibiotics. JAMES drain was serosanguineous fluid will like to continue to monitor this for either bilious drainage over the next 24-48 hours and jinny pus over the next week. Plan: Continue with antibiotics as ordered, Flagyl and Cipro. Monitor labs and vital signs for signs of sepsis. Monitored JAMES drain for both bilious or pussy drainage. Anticipate he will stay in the hospital for 1-2 days. Hospital Course Summary Disclaimer: The visit summary below is not to be considered part of the above Progress Note. Hospital Course: 12/12/17 POD #1 Robotic-assisted cholecystectomy last night was very difficult and lengthy. He is feeling much better this morning. Leukocytosis of 23.2 compared to 17.6 yesterday, no bandemia at this point. He did not get the Ciprofloxacin last night as ordered but did get at this morning. Hemoglobin stable although slightly low at 10.2, it was 11.6 prior to surgery. Chemistry is basically unremarkable except elevated blood glucose. He is diabetic and his diabetic medications will be added back into his routine. Given the extent of gangrenous cholecystitis anticipate a couple days of IV antibiotics and then home on by mouth antibiotics. JAMES drain was serosanguineous fluid will like to continue to monitor this for either bilious drainage over the next 24-48 hours and jinny pus over the next week. Plan: Continue with antibiotics as ordered, Flagyl and Cipro. Monitor labs and vital signs for signs of sepsis. Monitored JAMES drain for both bilious or pussy drainage. Anticipate he will stay in the hospital for 1-2 days.
--- NOTE | 2017-12-12 21:44 | Progress Note ---
DATE OF SERVICE 12/12/2017 FINDINGS Mr. Merchant was seen on evening rounds. He denied significant abdominal pain. He states that he is feeling significantly better than last evening. I did notice that he was somewhat splinting during the process of breathing. Patient states that it "hurts to take a deep breath." PHYSICAL EXAM VITAL SIGNS: Afebrile, normotensive. Please refer to EMR. CHEST: Clear auscultation. HEART: Regular rate and rhythm. ABDOMEN: Soft. Minimal incisional tenderness. JAMES drainage was serosanguineous in nature. LABORATORY/RADIOGRAPHIC EVALUATION The patient did have an increased white count today of 23,000 most likely secondary to stress response from surgery as well as his gangrenous gallbladder. Hemoglobin overall is stable at 10.2 but slightly down. CMP was obtained today and found to be essentially within normal limits. AST, ALT, alkaline phosphatase, total bilirubin within normal limits. ASSESSMENT 62-year-old gentleman status post robotic-assisted laparoscopic cholecystectomy secondary to gangrenous/acute cholecystitis. Overall patient doing well. PLAN Continue with ongoing intravenous antibiotics given his leukocytosis and ongoing abdominal pain. Encourage the patient to use intravenous morphine in addition to the Lortab so that he could take "deeper breaths and cough and work on his incentive spirometer". I encouraged the patient on ambulation. Will reassess the patient tomorrow. Will continue with current care at this time. Overall I am pleased with the patient's progress. ESTEBAN
[2017-12-13 00:08] VITALS: RESP 16
[2017-12-13] MEDS: MetroNIDAZOLE PB 500 MG/100 ML BAG IV SCH (05:18)
[2017-12-13 07:27] VITALS: BP 172/88; PULSE 85; TEMP 99.1; O2SAT 94
[2017-12-13] MEDS ORDERED: CHLORTHALIDONE 25 MG TABLET PO SCH (08:00)
[2017-12-13] MEDS: NS 1,000 ML IV SCH (08:01)
--- NOTE | 2017-12-13 08:54 | General Surgery Progress Note ---
Subjective Narrative: He is breathing easier this morning. He had 1 dose morphine last evening which helped with the pain, and was able to do the IS better. He was able to go 1500- 1800 for me this am. He also noted he has felt "queezy" ever since the morphine , and is not as hungry this morning. He also too [place] on an empty stomach earlier this am. Nurse have him Reggie while I was there. At a 2nd visit about an hour later, he stated the nausea was gone and he would like to go home. - Vital Signs Last Vital Signs Temp 99.1 F 12/13/17 07:26 Pulse 85 12/13/17 07:26 Resp 16 12/13/17 07:26 BP 172/88 H 12/13/17 07:26 Pulse Ox 94 12/13/17 07:26 - Laboratory Result Diagrams: 12/13/17 07:36 12/13/17 07:36 - Normal Exam General: awake, alert Respiratory: equal bilaterally, no labored breathing Abdominal: appropriately tender, incision(s) (beatrice in tact.), other (JAMES with serosanguanous fluid, there is leaking of fluid from around the outside of the drain.) Psychiatric: normal affect Assessment and Plan (1) Cholelithiasis and acute cholecystitis without obstruction Current Visit: Yes Status: Acute (2) Status post laparoscopic cholecystectomy Current Visit: Yes Status: Acute (3) Leukocytosis Current Visit: Yes Status: Acute (4) Diabetes Current Visit: No Status: Chronic Qualifiers: Diabetes mellitus type: type 2 Problem details: Hgb A1C 6.6 (5) HTN (hypertension) Current Visit: No Status: Chronic Qualifiers: Hypertension type: essential hypertension Qualified Code(s): I10 - Essential (primary) hypertension (6) Obesity Current Visit: No Status: Chronic Qualifiers: Body mass index: BMI 32.0-32.9 Plan: WBC down to 16.7 (23.2 yesterday) CMP is good, Bilirubin normal at 0.50 pain controlled with Ibuprofen and [place]. Will DC to home with JAMES teaching, Cipro 500 BID and Flagyl 500 TID for an additional 6 days. F/U 12/19 for drain management. Hospital Course Summary Disclaimer: The visit summary below is not to be considered part of the above Progress Note. Hospital Course: 12/12/17 POD #1 Robotic-assisted cholecystectomy last night was very difficult and lengthy. He is feeling much better this morning. Leukocytosis of 23.2 compared to 17.6 yesterday, no bandemia at this point. He did not get the Ciprofloxacin last night as ordered but did get at this morning. Hemoglobin stable although slightly low at 10.2, it was 11.6 prior to surgery. Chemistry is basically unremarkable except elevated blood glucose. He is diabetic and his diabetic medications will be added back into his routine. Given the extent of gangrenous cholecystitis anticipate a couple days of IV antibiotics and then home on by mouth antibiotics. JAMES drain was serosanguineous fluid will like to continue to monitor this for either bilious drainage over the next 24-48 hours and jinny pus over the next week. Plan: Continue with antibiotics as ordered, Flagyl and Cipro. Monitor labs and vital signs for signs of sepsis. Monitored JAMES drain for both bilious or pussy drainage. Anticipate he will stay in the hospital for 1-2 days. 12/13 WBC down to 16.7 (23.2 yesterday) CMP is good, Bilirubin normal at 0.50 pain controlled with Ibuprofen and [place]. Will DC to home with JAMES teaching, Cipro 500 BID and Flagyl 500 TID for an additional 6 days. F/U 12/19 for drain management.
[2017-12-13] MEDS ORDERED: ATENOLOL 100 MG TABLET PO SCH (09:00)
[2017-12-13] MEDS ORDERED: DAPAGLIFLOZIN 5 MG TABLET PO SCH (09:00)
--- NOTE | 2017-12-13 09:01 | Discharge Summary ---
Discharge Information Date of admission: 12/12/17 11:57 Anticipated date of discharge: 12/13/17 Attending Physician: Pedro García MD Primary care physician: ALVINO Orozco - Discharge Diagnosis (1) Cholelithiasis and acute cholecystitis without obstruction Status: Acute (2) Status post laparoscopic cholecystectomy Status: Acute (3) Leukocytosis Status: Acute (4) Diabetes Status: Chronic (5) HTN (hypertension) Status: Chronic (6) Obesity Status: Chronic - Procedures Procedures: DATE OF PROCEDURE 12/11/2017 SURGEON Pedro García MD REHABILITATION SERVICES COUNSELOR Eyad Qureshi APRN PREOPERATIVE DIAGNOSIS Acute cholecystitis. POSTOPERATIVE DIAGNOSIS Acute/gangrenous cholecystitis. PROCEDURE PERFORMED Robotic-assisted laparoscopic cholecystectomy with use of intraoperative Firefly biliary imaging, intraoperative cholangiogram, and biopsy of liver nodules. - Laboratory Labs: 12/13/17 07:36 12/13/17 07:36 Laboratory Tests 12/11/17 12/11/17 12/11/17 08:18 08:18 08:18 WBC 17.6 H Total Bilirubin 0.90 Lipase 121 12/12/17 12/12/17 12/13/17 04:21 04:21 07:36 WBC 23.2 H Total Bilirubin 0.50 0.50 Lipase 12/13/17 07:36 WBC 16.7 H Total Bilirubin Lipase - Radiology Radiology: 3 GB ultrasound Impression: Cholelithiasis with gallbladder wall thickening potentially representing acute cholecystitis in the appropriate clinical setting. No biliary ductal dilatation. 3/5 Intraoperative cholangiogram Indication: cholangiogram PROCEDURE: RF cholangiogram operative: Comparison: None Findings: 4 fluoroscopic spot images are submitted from an intraoperative cholangiogram. Images demonstrate injection of contrast into the cystic duct with filling of the common duct and intrahepatic biliary tree. No discrete filling defects are identified. Contrast flows into the duodenum. - Pathology Pending at time of discharge. - History of Present Illness Chief complaint: Abdominal Pain HPI: BRIEF HISTORY/INDICATIONS Mr. Merchant is a 62-year-old gentleman who I was asked to see today as a result of his finding of severe right upper quadrant abdominal pain, leukocytosis, and abnormal gallbladder sonogram revealing evidence for acute cholecystitis. Upon physical examination the patient indeed was found to have localized tenderness to his right upper quadrant. He was found to have positive Do sign. Sonogram did reveal a large stone within the neck of the gallbladder with associated gallbladder wall thickening. As a result of the above indications, it was recommended to the patient that he undergo surgical intervention/ cholecystectomy. Hospital Course This is a general summary of the patient's hospital course. For more details refer to the complete medical record. Hospital course: 12/11 Emergent Robotic cholecystectomy with intraoperative cholangiogram, Firefly imaging, and biopsy of liver nodules. 12/12/17 POD #1 Robotic-assisted cholecystectomy last night was very difficult and lengthy. He is feeling much better this morning. Leukocytosis of 23.2 compared to 17.6 yesterday, no bandemia at this point. He did not get the Ciprofloxacin last night as ordered but did get at this morning. Hemoglobin stable although slightly low at 10.2, it was 11.6 prior to surgery. Chemistry is basically unremarkable except elevated blood glucose. He is diabetic and his diabetic medications will be added back into his routine. Given the extent of gangrenous cholecystitis anticipate a couple days of IV antibiotics and then home on by mouth antibiotics. JAMES drain was serosanguineous fluid will like to continue to monitor this for either bilious drainage over the next 24-48 hours and jinny pus over the next week. Plan: Continue with antibiotics as ordered, Flagyl and Cipro. Monitor labs and vital signs for signs of sepsis. Monitored JAMES drain for both bilious or pussy drainage. Anticipate he will stay in the hospital for 1-2 days. 12/13 WBC down to 16.7 (23.2 yesterday) CMP is good, Bilirubin normal at 0.50 pain controlled with Ibuprofen and Drake. Will DC to home with JAMES teaching, Cipro 500 BID and Flagyl 500 TID for an additional 6 days. F/U 12/19 for drain management. Time spent with patient: discharge greater than 30 minutes Resuscitation Status: Full Code Discharge Plan - Med Rec/Dispo Referrals/Follow Up: Omaira Qureshi APRN [Advanced Practice Nurse] - 12/19/17 4:15 pm Prescriptions: New Ciprofloxacin [Cipro 500 mg] 500 mg PO BID 6 Days #12 tab Hydrocodone/APAP 5/325 [Drake 5/325] 1 - 2 tab PO Q5H PRN #25 tab PRN Reason: Pain Ibuprofen [Motrin] 800 mg PO Q6H PRN tab PRN Reason: Pain Ondansetron [Zofran Odt] 1 tab PO Q6HR PRN #6 tab PRN Reason: Nausea metroNIDAZOLE [Flagyl] 500 mg PO TID 6 Days #18 tab Continue Niacin 500 mg PO BID #0 Aspirin [ASA] 325 mg PO DAILY chlorthalidone 25 mg tablet 25 mg PO DAILY #90 tab Calcium 600 w/Vitamin D3 (calcium carbonate-vitamin D3 600 mg (1,500 mg)-400 unit) capsule 1 cap PO DAILY multivitamin-ferrous fumarate-folic acid 18 mg-400 mcg tablet 1 tab PO QAM Tenormin (atenolol) 100 mg tablet 100 mg PO DAILY #90 tab Catapres (clonidine HCl) 0.1 mg tablet 0.1 mg PO BID #180 tab dapagliflozin 10 mg tablet 10 mg PO QAM #90 tab Glucophage (metformin) 1,000 mg tablet 1,000 mg PO BID #180 tab Cozaar (losartan) 50 mg tablet 50 mg PO BID #60 tab - Disposition 01 Discharged Home, Self-Care
[2017-12-13] MEDS: METFORMIN 1,000 MG TABLET PO SCH (09:07)
[2017-12-13] MEDS: IBUPROFEN 800 MG TABLET PO PRN (09:13)
== END 2017-12-13 10:52 | disposition home or self-care (01) | DRG 419 ==
LOC: ED 08:03 → SRG 08:03
PROVIDERS: ADMIT Surgery; ATTEND Surgery